=== PATIENT | male | born 1945 | race Caucasian/White ===

== ENCOUNTER 2017-11-30 19:49 | Emergency (ER) | payer MEDICARE ==
[~2017-11-30] VITALS: Ht 170.2 cm; Wt 115.9 kg
[2017-11-30 20:02] VITALS: TEMP 98.5
[2017-11-30 20:54] LABS: BASO # 0.1 (0.0-0.2); BASO % 0.6 % (0.0-2.0); EOS # 0.5 (0.0-0.7); GRAN # 10.5 (1.4-6.5); GRAN % 79.2 % (42.2-75.2); HEMOGLOBIN 14.1 g/dl (13.5-18.0); LYMPH % 7.1 % (20.0-51.0); MEAN CELL VOLUME 87 fl (80.0-100.0); MEAN CORPUSCULAR HEMOGLOBIN 28 pg (27.0-31.0); MEAN CORPUSCULAR HGB CONC 33 g/dl (33.0-37.0); MEAN PLATELET VOLUME 9.9 fl (7.4-10.4); MONO # 0.9 (0.1-0.6); MONO % 6.5 % (1.7-9.3); PLATELET COUNT 204 K/mm3 (130-400); RED BLOOD COUNT 4.96 M/mm3 (4.20-5.60); REDCELL DISTRIBUTION WIDTH-CV 14.8 % (11.5-14.5)
[2017-11-30 21:00] LABS: INR 1.5 (0.8-3.0); PROTHROMBIN TIME 17.4 SECONDS (9.7-12.8)
[2017-11-30 21:05] LABS: ALANINE AMINOTRANSFERASE 27 U/L (21-72); ALKALINE PHOSPHATASE 41 U/L (50-136); ANION GAP 12 mmol/L (7-16); AST,SGOT 27 U/L (15-37); BILIRUBIN,TOTAL 0.9 mg/dL (0.0-1.0); BLOOD UREA NITROGEN 24 mg/dL (9-20); CALCIUM 8.9 mg/dL (8.4-10.2); CARBON DIOXIDE 22 mmol/L (22-30); CHLORIDE 100 mmol/L (98-107); CREATININE, serum 1.55 mg/dL (0.66-1.25); GLUCOSE 148 mg/dL (74-106); POTASSIUM 3.9 mmol/L (3.4-5.0); SODIUM 133 mmol/L (137-145); TOTAL PROTEIN 7.4 gm/dL (6.4-8.2)
[2017-11-30 21:20] LABS: TROPONIN-I < 0.012 ng/mL (0.000-0.034)
[2017-12-01] MEDS ORDERED: TRICOR145 MG PO (00:25)
[2017-12-01] MEDS ORDERED: LASIX 20MG TABL20 MG PO (00:25)
[2017-12-01] MEDS ORDERED: PRINIVIL40 MG PO (00:26)
[2017-12-01] MEDS ORDERED: LANTUS100 U/ML SQ (00:26)
[2017-12-01] MEDS ORDERED: GLUCOPHAGE1000 MG PO (00:27)
[2017-12-01] MEDS ORDERED: [UNRECOGNIZED DRUG - SUPPLY] (00:27)
[2017-12-01] MEDS ORDERED: BETAPACE 80MG80 MG PO (00:28)
[2017-12-01] MEDS ORDERED: PRAVACHOL 40MG40 MG PO (00:28)
[2017-12-01] MEDS ORDERED: NEOMYCIN AND PO20 ML IL (00:28)
[2017-12-01] MEDS ORDERED: XARELTO20 MG PO (00:29)
[2017-12-01] MEDS ORDERED: ASPIRIN 81M81 MG/TA2 PO (00:29)
[2017-12-01] MEDS ORDERED: KENALOG DENTAL P5 GM DT (00:29)
[2017-12-01 00:40] VITALS: BP 91/59; PULSE 63
== END 2017-12-01 00:40 | disposition home or self-care (01) ==
LOC: COL.ER 19:49
PROVIDERS: Emergency Medicine
DX: E86.0 Dehydration (principal); R53.83 Other fatigue; E86.1 Hypovolemia; I48.91 Unspecified atrial fibrillation; E11.9 Type 2 diabetes mellitus without complications; E78.5 Hyperlipidemia, unspecified; I10 Essential (primary) hypertension; Z79.4 Long term (current) use of insulin; Z95.1 Presence of aortocoronary bypass graft; Z79.82 Long term (current) use of aspirin